=== PATIENT | male | born 1950 | race Caucasian/White ===

== ENCOUNTER 2017-12-30 00:45 | Inpatient (IN) | payer MEDICARE, MEDICAID ==
[2017-12-30] VITALS (7 sets, daily range): BP systolic 95–141; BP diastolic 51–80
[~2017-12-30] VITALS: Ht 182.9 cm; Wt 55.3 kg
[~2017-12-30 00:45] MED LIST: ADULT LOW DOSE81 MG PO; PROAIR HFA8.5 GM IH; ZPAK PO; [UNRECOGNIZED DRUG - OTHER]
[2017-12-30 01:14] LABS: ABSOLUTE BASOPHILS 0.1 thou/uL (0.0-0.2); ABSOLUTE EOSINOPHILS 0.2 thou/uL (0.0-0.7); ABSOLUTE LYMPHOCYTES 1.8 thou/uL (0.8-5.3); ABSOLUTE MONOCYTES 0.9 thou/uL (0.0-1.2); ABSOLUTE NEUTROPHILS 4.9 thou/uL (1.6-8.1); BASOPHILS 0.7 %; EOSINOPHILS 2.7 %; HEMATOCRIT 37.8 % (42.0-52.0); HEMOGLOBIN 12.4 gm/dL (14.0-18.0); LYMPHOCYTES 23.4 %; MCH 29.9 pg (26.0-34.0); MCHC 32.8 g/dL (28.0-37.0); MCV 91.2 fL (80.0-100.0); MONOCYTES 11.4 %; MPV 6.8 fl. (7.2-11.1); NUCLEATED RBCS 0 /100WBC; PLATELET COUNT* 280 thou/uL (150-400); POLYS 61.8 %; RBC 4.15 mil/uL (4.50-6.00); RDW-CV 14.3 % (10.5-14.5); WBC 7.9 thou/uL (4.0-11.0)
[2017-12-30 01:24] LABS: APTT 28.9 Seconds (25.0-31.3); PROTIME 10.5 Seconds (9.20-11.50)
[2017-12-30] MEDS ORDERED: PLAVIX 75 MG TA75 M1 PO (01:42)
[2017-12-30] MEDS ORDERED: GABAPENTIN 100100 MG PO (01:42)
[2017-12-30] MEDS ORDERED: FLOMAX0.4 MG PO (01:43)
[2017-12-30] MEDS ORDERED: LIPITOR 20 MG T20 M1 PO (01:43)
[2017-12-30 01:44] LABS: ANION GAP 6 mmol/L (7-16); BUN 16 mg/dL (7-18); CALCIUM 8.8 mg/dL (8.5-10.1); CHLORIDE 104 mmol/L (98-107); CO2 29 mmol/L (21-32); CREATININE 2.1 mg/dL (0.6-1.3); GLUCOSE 121 mg/dL (70-99); SODIUM 139 mmol/L (136-145)
[2017-12-30 01:51] LABS: ALKALINE PHOSPHATASE 103 U/L (46-116); SGOT 18 U/L (15-37); SGPT 17 U/L (30-65); TOTAL BILIRUBIN 0.3 mg/dL (<0.1-1.0); TOTAL PROTEIN 7.2 g/dL (6.4-8.2); TROPONIN-I LEVEL <0.06 ng/mL (<0.06)
[2017-12-30] MEDS ORDERED: AMBIEN 5 MG TABL5 M1 PO (01:54)
[2017-12-30 02:08] LABS: POC CA IONIZED 4.7 mg/dL (4.5-5.3); POC CREATININE 2.2 mg/dL (0.6-1.3); POC HEMOGLOBIN 12.6 g/dL (12.0-17.0)
[2017-12-30 09:53] LABS: ALBUMIN 2.9 g/dL (3.4-5.0); CALCIUM 8.7 mg/dL (8.5-10.1); CREATININE 1.9 mg/dL (0.6-1.3); POTASSIUM 4.1 mmol/L (3.5-5.1); TOTAL BILIRUBIN 0.3 mg/dL (<0.1-1.0); TOTAL PROTEIN 6.9 g/dL (6.4-8.2)
--- NOTE | 2017-12-30 11:06 | EKG ---
[place] [address] ELECTROCARDIOGRAM REPORT Name: SANJIV HARDEN Room: [place] [address] ADM IN [facility]#: [id number] Admission: 12/30/17 Attend Phys: Jeremi Salazar MD Discharge: Date of : 50 Report #: [id number] THIS REPORT FOR: //name// [facility] ED Test Date: 2017-12-30 Test Time: 01:30:46 Pat Name: SANJIV HARDEN Department: Room: [facility] Gender: M Compensation Specialist: AARON : 1950 Requested By: En Moran Order Number: [id number] MD: Sanjiv King Measurements Intervals [place] Rate: 84 P: 69 ME: 162 QRS: 61 QRSD: 99 T: 57 QT: 357 QTc: 422 Interpretive Statements Sinus rhythm Abnormal R-wave progression, early transition Compared to ECG 03/17/2010 09:51:46 no change Electronically Signed On 12-30-2017 11:06:35 CDT by Sanjiv King [email or web address] <ELECTRONICALLY SIGNED> By: Sanjiv King MD, [facility] 12/30/17 1106 0130 0130 Sanjiv King MD, FACC /EPI
[2017-12-30 23:07] LABS: GLYCOHEMOGLOBIN (HGB A1C) 5.5 % (4.8-5.6)
[2017-12-31] VITALS: BP 113/63
[2017-12-31 04:00] VITALS: BP 110/67
[2017-12-31 06:06] LABS: ALBUMIN 2.8 g/dL (3.4-5.0); CALCIUM 8.3 mg/dL (8.5-10.1); CREATININE 1.5 mg/dL (0.6-1.3); POTASSIUM 4.4 mmol/L (3.5-5.1); TOTAL BILIRUBIN 0.3 mg/dL (<0.1-1.0); TOTAL PROTEIN 6.7 g/dL (6.4-8.2)
[2017-12-31 06:12] LABS: CHOLESTEROL 112 mg/dL (<200); HDL CHOLESTEROL 34 mg/dL (>40); LDL CHOLESTEROL 67 mg/dL (<100); TC:HDL 3.3 Ratio (Not establshd); TRIGLYCERIDE 59 mg/dL (<150); VLDL 12 mg/dL (<40)
[2017-12-31 06:14] LABS: SERUM ASSESSMENT Clear
[2017-12-31 08:14] VITALS: BP 99/61
[2017-12-31] MEDS ORDERED: ASPIRIN325 PO (13:34)
[2017-12-31 13:35] VITALS: BP 99/61
--- NOTE | 2018-01-06 09:32 | EEG ---
[address] [address] EEG STUDY REPORT Name: SANJIV HARDEN Room: [address] IN .#: [id number] Admission: 12/30/17 Attend Phys: Jeremi Salazar MD Discharge: 12/31/17 Date of : 50 Report #: [id number] THIS REPORT FOR: //name// CC: FAM physician/PCP Jreemi Salazar DATE OF SERVICE: 12/30/2017 This patient is being evaluated for a question of seizure. EEG was done by placing the electrodes by standard 10-20 system of electrode placement. Both referential and sequential montages were used for recording. Background activity in this patient's EEG is about 10 Hz and 40 microvolt. The patient goes to sleep that is associated with bilaterally symmetrical sleep spindle and vertex sharp waves. Photic stimulation is unremarkable. Throughout the record, no active epileptiform activity was noticed. IMPRESSION: This patient's EEG is within normal limit. Thank you for very much for this referral. <ELECTRONICALLY SIGNED> By: Yakov Nichols MD 01/06/18 0932 [id number] [id number] Nichols MD /nt
--- NOTE | 2018-01-06 09:32 | CON ---
[address] [address] CONSULTATION Name: SANJIV HARDEN Room: [address] IN [facility]#: [id number] Admission: 12/30/17 Attend Phys: Jeremi Salazar MD Discharge: 12/31/17 Date of : 50 Report #: [id number] THIS REPORT FOR: //name// CC: VALERIE physician/PCP Jeremi Salazar DATE OF SERVICE: 12/30/2017 HISTORY OF PRESENT ILLNESS: This is a 67-year-old male patient who is a poor historian. His daughter could not be reached. I could not get the history. I reviewed the records in this patient. The patient gives a history that he felt dizzy. He passed out. He had some drooling. He had some facial droop, he had some speech difficulty, but he also says that he had multiple strokes in the past and he has a baseline problem. He has become better. He feels back to his baseline. REVIEW OF SYSTEMS: Indicate this patient has CVA in the past. In fact, he had multiple CVA. He says he has been diagnosed with prostate cancer, but it is not certain how he has been diagnosed with prostate cancer. 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 he says he does, but he does not know how. He feels back to his normal self now. His memory is poor. He said the stroke has affected his memory. He does not provide any more history about his prostate cancer. I carried out 14-point review of systems the best I could He has history of stroke. He has history of prostate cancer and it looks like he has significant dementia later on examination. He has eye problems, but he said the left eye problem is old. He is not complaining of any new ENT, cardiac, respiratory, GI, , musculoskeletal, constitutional, dermatological, hematological, psychiatric, throat, allergic symptom associated with present symptomatology which has not been mentioned above. PAST MEDICAL HISTORY: Positive for prostate cancer. FAMILY HISTORY: Negative for any early age stroke. SOCIAL HISTORY: He says he smokes. PHYSICAL EXAMINATION: Examination is difficult. He is alert. He is responsive. He is only partly oriented. His memory is poor. His speech looks mostly intact. His fund of knowledge is poor. Cranial nerve examination indicate vision problem, which is old. He has some weakness, especially on the left side. He can move his legs. His position sense looks intact. His reflexes are mostly symmetrical, but it is very difficult to tell how much deficit is old and how much is new. I could not look at the fundus. Cardiac examination is unremarkable. He has scattered rhonchi, but no marked respiratory difficulty. His blood pressure is 111/64, respirations 18, pulse is 74, temperature is 97.8. [place] [address] CONSULTATION Name: SANJIV HARDEN Room: [address]#: [id number] Admission: 12/30/17 Attend Phys: Jeremi Salazar MD Discharge: 12/31/17 Date of : 50 Report #: [id number] LABORATORY DATA: White count is 7.9. Sodium is 140. He does not appear to have any edema, cyanosis or jaundice. His MRI does show multiple infarcts, but they are chronic. He does have a problem with posterior circulation on the MRA, which has become worse, but the strokes look old. IMPRESSION: This patient may have had a posterior fossa transient ischemic attack. Possibility of seizure is also there. He has a pretty bad looking posterior circulation which has becoming worse. He needs to stop smoking. 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 Because of that, it may be desirable to exclude the possibility of any contribution from the spine. RECOMMENDATIONS: I had a long discussion with the patient and I discussed all of it with the patient. I said we will proceed with MRI of the thoracic and lumbar spine. For his TIA-like symptoms, he needs to stop smoking. He is on statin. He already is on aspirin and I am not sure what else could be done. 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 Thank you very much for this referral. More than 50 minutes of time was spent taking care of this patient today and majority of that time was spent counseling this patient. Thank you very much for this referral. <ELECTRONICALLY SIGNED> By: Yakov Nichols MD 01/06/18 0932 [id number] [id number] Nichols MD /nt
== END 2017-12-31 14:15 | disposition home or self-care (01) | DRG 69 ==
LOC: M.ERS 00:45 → M.TBA-ER 01:42 → M.2W 01:42
PROVIDERS: Emergency Medicine Emergency Medical Services; Internal Medicine; ADMIT Internal Medicine
DX: G45.9 Transient cerebral ischemic attack, unspecified (principal); N17.0 Acute kidney failure with tubular necrosis; C79.51 Secondary malignant neoplasm of bone; I69.354 Hemiplegia and hemiparesis following cerebral infarction affecting left non-dominant side; E44.0 Moderate protein-calorie malnutrition; C61 Malignant neoplasm of prostate; J44.9 Chronic obstructive pulmonary disease, unspecified; N18.3 Chronic kidney disease, stage 3 (moderate); F17.210 Nicotine dependence, cigarettes, uncomplicated; H54.61 Unqualified visual loss, right eye, normal vision left eye; F01.50 Vascular dementia, unspecified severity, without behavioral disturbance, psychotic disturbance, mood disturbance, and anxiety; Z53.29 Procedure and treatment not carried out because of patient's decision for other reasons; Z71.6 Tobacco abuse counseling; Z88.0 Allergy status to penicillin; Z79.899 Other long term (current) drug therapy; I25.2 Old myocardial infarction; Z86.11 Personal history of tuberculosis; Z79.02 Long term (current) use of antithrombotics/antiplatelets